=== PATIENT | female | born 1960 | race Caucasian/White ===

== ENCOUNTER 2018-11-25 20:20 | Emergency (ER) | payer OTHER ==
[~2018-11-25] VITALS: Ht 160 cm; Wt 95.5 kg
[2018-11-25 21:04] VITALS: BP 164/92
[2018-11-25] MEDS ORDERED: AMLO-511 PO (21:19)
[2018-11-25] MEDS ORDERED: AMLO-512 PO (21:19)
[2018-11-25] MEDS ORDERED: HYDR25TA PO (21:19)
[2018-11-25] MEDS ORDERED: GLIP5 PO (21:19)
[2018-11-25] MEDS ORDERED: LOSA50TA64 PO (21:19)
[2018-11-25] MEDS ORDERED: INSU300I SQ (21:19)
[2018-11-25] MEDS ORDERED: METF-960 PO (21:19)
[2018-11-25 21:30] LABS: GLUCOSE,POINT OF CARE 173 MG/DL (70-110)
== END 2018-11-25 22:26 | disposition home or self-care (01) ==
LOC: EMS 20:28
DX: J40 Bronchitis, not specified as acute or chronic (principal); E66.9 Obesity, unspecified; R10.10 Upper abdominal pain, unspecified; E11.9 Type 2 diabetes mellitus without complications; I10 Essential (primary) hypertension; Z68.37 Body mass index [BMI] 37.0-37.9, adult; Z98.51 Tubal ligation status; Z79.84 Long term (current) use of oral hypoglycemic drugs; Z79.4 Long term (current) use of insulin